=== PATIENT | female | born 1960 | race Caucasian/White ===

== ENCOUNTER → 2020-08-18 | Outpatient (CLI) | payer OTHER ==
[~2020-08-18] MED LIST: ALLERCLEAR10 MG PO; BUPR100; CEPH500 PO; CODACE30 PO; ESOM20; HYDACE5 PO; IBU800 M1 PO; LEVSOD125 PO; MELO7.5 PO; METPHE20CR; NEFA100; Norco 5-325 Ta1 EACH PO; OMEPRAZOLE MAGN20 MG PO; PENVK500 PO; Prilosec20 MG PO; RANI150; SYNTHROID112 MCG PO; TRAM50 PO
[2020-08-19 12:11] LABS: HPV 16 Negative (Negative); HPV 18 Negative (Negative); HPV OTHER HR TYPES Negative (Negative)
== END | disposition home or self-care (01) ==
LOC: LAB SHORT 16:15 → LAB 16:15
PROVIDERS: Nurse Practitioner Family
DX: Z01.419 Encounter for gynecological examination (general) (routine) without abnormal findings (principal)
CPT/HCPCS: 87624; G0123

== ENCOUNTER 2020-12-04 20:00 | Emergency (ER) | payer OTHER ==
[~2020-12-04] VITALS: Ht 180.3 cm; Wt 122.5 kg
[2020-12-04] MEDS ORDERED: PREGABALIN50 MG PO (20:10)
== END 2020-12-04 21:28 | disposition home or self-care (01) ==
LOC: ER 20:00
DX: M79.671 Pain in right foot (principal); E03.9 Hypothyroidism, unspecified; G62.9 Polyneuropathy, unspecified; Z87.891 Personal history of nicotine dependence
CPT/HCPCS: 73630; 99283-25

== ENCOUNTER → 2021-12-05 | Outpatient (CLI) | payer OTHER ==
[~2021-12-05] MED LIST changes: +PREGABALIN50 MG PO
[2021-12-05 13:18] LABS: BASOPHILS ABSOLUTE AUTO 0.07 K/mm3 (0.00-0.23); BASOPHILS PERCENT AUTO 1 % (0-2); EOSINOPHILS ABSOLUTE AUTO 0.26 K/mm3 (0.00-0.68); EOSINOPHILS PERCENT AUTO 3 % (0-6); Hematocrit 44.6 % (33.0-51.0); Hemoglobin 15.3 g/dL (11.5-16.0); IMMATURE GRAN ABSOLUTE AUTO 0.04 K/mm3 (0.00-0.10); IMMATURE GRAN PERCENT AUTO 0 % (0-1); LYMPHOCYTES ABSOLUTE AUTO 2.31 K/mm3 (0.84-5.20); LYMPHOCYTES PERCENT AUTO 24 % (21-46); MONOCYTES ABSOLUTE AUTO 0.78 K/mm3 (0.16-1.47); MONOCYTES PERCENT AUTO 8 % (4-13); Mean Corpuscular HGB 30.7 pg (26.0-34.0); Mean Corpuscular HGB Conc 34.3 g/dL (31.5-36.5); Mean Corpuscular Volume 90 fL (80-100); Mean Platelet Volume 9.7 fL (9.1-12.4); NEUTROPHILS ABSOLUTE AUTO 6.14 K/mm3 (1.96-9.15); NEUTROPHILS PERCENT AUTO 64 % (41-73); Platelet Count 281 K/mm3 (150-400); RDW Coefficient Variation 13.2 % (11.7-14.2); RDW Standard Deviation 42.7 fL (35.1-46.3); Red Blood Cell Count 4.98 M/mm3 (3.80-5.20)
[2021-12-05 13:33] LABS: Albumin, Blood 3.6 g/dL (3.4-5.0); Albumin/Globulin Ratio 0.9 (0.8-1.8); Bilirubin, Total 0.6 mg/dL (0.1-1.0); Bun/Creatinine Ratio 16.9 (12.0-20.0); Calcium, Blood 8.5 mg/dL (8.5-10.1); Creatinine, Blood 0.77 mg/dL (0.40-1.00); Free Thyroxine 1.32 ng/dL (0.70-1.60); Globulin, Blood 3.8 g/dL (2.2-4.0); Potassium, Blood 4.2 mmol/L (3.5-5.5); Thyroid Stimulating Hormone 3.52 uIU/mL (0.360-4.800); Total Protein, Blood 7.4 g/dL (6.4-8.2)
== END | disposition home or self-care (01) ==
LOC: LAB 13:10 → LAB SHORT 13:10
PROVIDERS: General Practice
DX: R07.9 Chest pain, unspecified (principal); R53.81 Other malaise
CPT/HCPCS: 80053; 82550; 84439; 84443; 84484; 85025

== ENCOUNTER 2022-04-04 09:29 | Day surgery (SDC) | payer OTHER ==
[~2022-04-04] VITALS: Ht 180.3 cm; Wt 127.1 kg
[~2022-04-04 09:29] MED LIST changes: +ACET500 PO; +FAMO20 PO; +OMEP20ER PO; -OMEPRAZOLE MAGN20 MG PO
--- NOTE | 2022-04-04 10:19 | NUR ---
Ambulatory in Day Surgery. History, Chart, Medications and Allergies reviewed before start of procedure. Lungs clear T/O to Auscultation. Patient confirms NPO status and agrees with scheduled surgery. Pre-Op teaching done. Pt verbalizes understanding. Patient States Post-Procedure ride home has been arranged.
--- NOTE | 2022-04-04 10:49 | NUR ---
04/04/22 1049 Roberto Carlos Alfaro HISTORY, CHART, MEDICATIONS AND ALLERGIES REVIEWED BEFORE START OF PROCEDURE. PATIENT CONFIRMS NPO STATUS AND AGREES WITH SCHEDULED PROCEDURE. 3-LEAD EKG REVIEWED WITH PHYSICIAN PRIOR TO START OF PROCEDURE. MONITOR INTACT WITH CONTINUOUS PULSE OXIMETRY,CAPNOGRAPHY, 3-LEAD EKG, INTERMITTENT BP. SUPPLEMENTAL O2 TO BE TITRATED THROUGHOUT PROCEDURE TO MAINTAIN O2 SATURATION ABOVE 90%. PATIENT DETERMINED TO BE ASA APPROPRIATE FOR PROPOFOL SEDATION PRIOR TO START OF PROCEDURE BY DR. VARGAS
--- NOTE | 2022-04-04 11:10 | NUR ---
DISCHARGE SUMMARY PT A&OX4, VSS/RA, SUSU PO, AMB IND, IV DC'D, EAGER FOR DC. DC INS PROVIDED. PT REP UNDERSTANDING THOSE INSTRUCTIONS. LEFT VIA WC WITH DC VOL TO GO HOME WITH ALL PERSONAL POSSESSIONS WITH DEALER ANALYST BURAK.
== END 2022-04-04 22:44 | disposition home or self-care (01) ==
LOC: ORSCMMR 09:29 → ORD 10:15 → ORSCMMR 22:44
PROVIDERS: Internal Medicine Gastroenterology
PROC: 0DBP8ZX Excision of Rectum, Via Natural or Artificial Opening Endoscopic, Diagnostic (ICD-10-PCS; principal; 2022-04-04 10:15)
PROC: 0DB48ZX Excision of Esophagogastric Junction, Via Natural or Artificial Opening Endoscopic, Diagnostic (ICD-10-PCS; 2022-04-04 10:15)
DX: K21.9 Gastro-esophageal reflux disease without esophagitis (principal); Z12.11 Encounter for screening for malignant neoplasm of colon; Z86.010 Personal history of colon polyps; K62.1 Rectal polyp; E03.9 Hypothyroidism, unspecified; E66.01 Morbid (severe) obesity due to excess calories; Z68.39 Body mass index [BMI] 39.0-39.9, adult; F17.210 Nicotine dependence, cigarettes, uncomplicated; Z79.899 Other long term (current) drug therapy
CPT/HCPCS: 82947; 88305; A9270; J2704; J7120

== ENCOUNTER → 2022-06-22 | Outpatient (CLI) | payer OTHER ==
[2022-06-22 16:10] LABS: BASOPHILS ABSOLUTE AUTO 0.07 K/mm3 (0.00-0.23); BASOPHILS PERCENT AUTO 1 % (0-2); EOSINOPHILS ABSOLUTE AUTO 0.12 K/mm3 (0.00-0.68); EOSINOPHILS PERCENT AUTO 1 % (0-6); Hematocrit 45.2 % (33.0-51.0); Hemoglobin 15.6 g/dL (11.5-16.0); IMMATURE GRAN ABSOLUTE AUTO 0.05 K/mm3 (0.00-0.10); IMMATURE GRAN PERCENT AUTO 1 % (0-1); LYMPHOCYTES ABSOLUTE AUTO 1.81 K/mm3 (0.84-5.20); LYMPHOCYTES PERCENT AUTO 16 % (21-46); MONOCYTES ABSOLUTE AUTO 1.13 K/mm3 (0.16-1.47); MONOCYTES PERCENT AUTO 10 % (4-13); Mean Corpuscular HGB 30.8 pg (26.0-34.0); Mean Corpuscular HGB Conc 34.5 g/dL (31.5-36.5); Mean Corpuscular Volume 89 fL (80-100); Mean Platelet Volume 10.3 fL (9.1-12.4); NEUTROPHILS ABSOLUTE AUTO 7.93 K/mm3 (1.96-9.15); NEUTROPHILS PERCENT AUTO 71 % (41-73); Platelet Count 286 K/mm3 (150-400); RDW Standard Deviation 42.3 fL (35.1-46.3); Red Blood Cell Count 5.06 M/mm3 (3.80-5.20); White Blood Cell Count 11.11 K/mm3 (4.00-11.30)
[2022-06-22 16:24] LABS: Albumin, Blood 3.9 g/dL (3.4-5.0); Albumin/Globulin Ratio 1.1 (0.8-1.8); Bilirubin, Total 0.7 mg/dL (0.1-1.0); Bun/Creatinine Ratio 14.6 (12.0-20.0); Calcium, Blood 9.2 mg/dL (8.5-10.1); Creatinine, Blood 0.89 mg/dL (0.40-1.00); Globulin, Blood 3.7 g/dL (2.2-4.0); Potassium, Blood 4.3 mmol/L (3.5-5.5); Total Protein, Blood 7.6 g/dL (6.4-8.2)
== END | disposition home or self-care (01) ==
LOC: LAB 16:06 → LAB SHORT 16:06
PROVIDERS: Physician Assistant
DX: R07.9 Chest pain, unspecified (principal)
CPT/HCPCS: 80053; 84484; 85025

== ENCOUNTER → 2022-07-04 | Outpatient (CLI) | payer OTHER | END | disposition home or self-care (01) | LOC: LAB SHORT 13:29 → LAB 13:29 | DX: Z51.81 Encounter for therapeutic drug level monitoring (principal); Z79.899 Other long term (current) drug therapy | CPT/HCPCS: 82306 ==

== ENCOUNTER → 2022-09-28 | Outpatient (CLI) | payer OTHER | END | disposition home or self-care (01) | LOC: PLD 08:07 → LAB SHORT 08:07 → LAB 08:07 | DX: L60.2 Onychogryphosis (principal); B35.1 Tinea unguium | CPT/HCPCS: 88304; 88312 ==

== ENCOUNTER 2022-11-22 06:18 | Day surgery (SDC) | payer OTHER ==
[~2022-11-22] VITALS: Ht 180.3 cm; Wt 117.4 kg
--- NOTE | 2022-11-22 06:45 | NUR ---
11/22/22 0645 Tamy Cotto TETRACAINE TO LEFT EYE 0640 PLEDGET TO LEFT EYE 0644 BY [facility].IBETH
[2022-11-22 08:40] VITALS: BP 160/90
== END 2022-11-22 08:43 | disposition home or self-care (01) ==
LOC: ORSCSDS 06:18
PROVIDERS: Student in an Organized Health Care Education/Training Program
PROC: 08RK3JZ Replacement of Left Lens with Synthetic Substitute, Percutaneous Approach (ICD-10-PCS; principal; 2022-11-22 08:00)
DX: E13.36 Other specified diabetes mellitus with diabetic cataract (principal); I10 Essential (primary) hypertension; G47.33 Obstructive sleep apnea (adult) (pediatric); E07.9 Disorder of thyroid, unspecified; E66.9 Obesity, unspecified; Z68.36 Body mass index [BMI] 36.0-36.9, adult; Z79.899 Other long term (current) drug therapy; F17.200 Nicotine dependence, unspecified, uncomplicated
CPT/HCPCS: 82947; J2001; J2250; J2704; J7040; V2632

== ENCOUNTER → 2023-08-16 | Outpatient (CLI) | payer OTHER | END | disposition home or self-care (01) | LOC: LAB 16:57 → LAB SHORT 16:57 | DX: M79.674 Pain in right toe(s) (principal) | CPT/HCPCS: 84550 ==

== ENCOUNTER → 2023-08-22 | Outpatient (CLI) | payer OTHER ==
[2023-08-22 19:50] LABS: BASOPHILS ABSOLUTE AUTO 0.02 K/mm3 (0.00-0.23); BASOPHILS PERCENT AUTO 0 % (0-2); EOSINOPHILS PERCENT AUTO 0 % (0-6); Hematocrit 43.2 % (33.0-51.0); Hemoglobin 14.7 g/dL (11.5-16.0); IMMATURE GRAN ABSOLUTE AUTO 0.11 K/mm3 (0.00-0.10); IMMATURE GRAN PERCENT AUTO 1 % (0-1); LYMPHOCYTES ABSOLUTE AUTO 1.04 K/mm3 (0.84-5.20); LYMPHOCYTES PERCENT AUTO 9 % (21-46); MONOCYTES ABSOLUTE AUTO 0.77 K/mm3 (0.16-1.47); MONOCYTES PERCENT AUTO 7 % (4-13); Mean Corpuscular Volume 91 fL (80-100); Mean Platelet Volume 10.8 fL (9.1-12.4); NEUTROPHILS ABSOLUTE AUTO 9.26 K/mm3 (1.96-9.15); NEUTROPHILS PERCENT AUTO 83 % (41-73); Platelet Count 291 K/mm3 (150-400); RDW Coefficient Variation 13.2 % (11.7-14.2); RDW Standard Deviation 43.9 fL (35.1-46.3); Red Blood Cell Count 4.74 M/mm3 (3.80-5.20)
[2023-08-22 19:59] LABS: Albumin, Blood 3.9 g/dL (3.4-5.0); Albumin/Globulin Ratio 0.9 (0.8-1.8); Bilirubin, Total 0.6 mg/dL (0.1-1.0); Bun/Creatinine Ratio 20.4 (12.0-20.0); Calcium, Blood 8.9 mg/dL (8.5-10.1); Creatinine, Blood 0.93 mg/dL (0.40-1.00); Globulin, Blood 4.3 g/dL (2.2-4.0); Potassium, Blood 4.1 mmol/L (3.5-5.5); Thyroid Stimulating Hormone 0.566 uIU/mL (0.360-4.800); Total Protein, Blood 8.2 g/dL (6.4-8.2)
== END | disposition home or self-care (01) ==
LOC: LAB 19:05 → LAB SHORT 19:05
PROVIDERS: Student in an Organized Health Care Education/Training Program
DX: E03.9 Hypothyroidism, unspecified (principal); E66.01 Morbid (severe) obesity due to excess calories; E11.9 Type 2 diabetes mellitus without complications
CPT/HCPCS: 80053; 84443; 85025

== ENCOUNTER → 2023-11-13 | Outpatient (CLI) | payer OTHER | LOC: LAB SHORT 07:42 → LAB 07:42 | DX: I78.1 Nevus, non-neoplastic (principal); L30.9 Dermatitis, unspecified; L03.031 Cellulitis of right toe | CPT/HCPCS: 88305; 88312 ==

== ENCOUNTER 2024-02-27 08:08 | Day surgery (SDC) | payer OTHER ==
[~2024-02-27] VITALS: Ht 180.3 cm; Wt 122.6 kg
[2024-02-27] VITALS (14 sets, daily range): BP systolic 104–169; BP diastolic 65–110
[~2024-02-27 08:08] MED LIST changes: +ALBU3IS INH; +Acetaminophen 500 MG Tab PO SCH; +CeFAZolin Sodium 3,000 MG in NS 100 ML IV SCH; +Chantix1 MG PO; +Chlorhexidine Mouth Care 15 ML UDC MT SCH; +IBUP200 PO; +JARDIANCE25 MG PO; +LEVSOD112 PO; +LOSA50 PO; +Lactated Ringer's 1,000 ML IV SCH; +NIFE90ER PO; +OxyCODONE HCL 10 MG TABCR PO SCH; +Ropivacaine 0.5% HCl/Pf 123.125 MG,EPINEPHrine HCL 0.25 MG,Ketorolac Tromethamine 15 MG... INFIL SCH; -SYNTHROID112 MCG PO; +Tranexamic Acid 1,000 MG in NS 100 ML IV SCH; +VARENICLINE TART1 MG PO; +Voltaren100 GM TOP
[2024-02-27] MEDS ORDERED: CeFAZolin Sodium 3,000 MG VIAL ONE (08:15)
[2024-02-27] MEDS ORDERED: Midazolam HCl 1MG / ML 2ML Vial ONE (08:54)
[2024-02-27] MEDS ORDERED: FentaNYL Citrate 50 MCG/ML 2 ML Injection ONE (08:54)
[2024-02-27] MEDS ORDERED: propofoL 60 ML IV ONE (08:54)
--- NOTE | 2024-02-27 08:56 | NUR ---
History, Chart, Medications and Allergies reviewed before start of procedure. Pre-Op teaching done. Pt verbalizes understanding. Patient confirms NPO status and agrees with scheduled surgery. PT BELONGINGS BAG PLACED UNDER GURNEY.
[2024-02-27] MEDS ORDERED: Promethazine HCl 25 MG Tab PO PRN (09:50)
[2024-02-27] MEDS ORDERED: Albuterol 2.5 MG/3 ML VIAL INH PRN (09:50)
[2024-02-27] MEDS ORDERED: OxyCODONE HCL 5 MG TAB PO PRN ×2 (09:55)
[2024-02-27] MEDS ORDERED: Bisacodyl 10 MG Supp PR PRN (10:10)
[2024-02-27] MEDS ORDERED: ePHEDrine Sulfate 50 MG/ML 1ML Injection ONE (10:12)
[2024-02-27] MEDS ORDERED: Magnesium Hydroxide Conc 10 ML UDC PO PRN (10:15)
[2024-02-27] MEDS ORDERED: HYDROmorphone HCl/Pf 1MG SYR IV PRN (10:15)
[2024-02-27] MEDS ORDERED: FLU VACC TS2024-25(6MOS UP)/PF 45 MCG/0.5 ML SYRINGE IM SCH (10:15)
[2024-02-27] MEDS ORDERED: Lactated Ringer's 1,000 ML IV SCH (10:15)
[2024-02-27] MEDS ORDERED: DiphenhydrAMINE HCL 25 MG Cap PO PRN (10:15)
[2024-02-27] MEDS ORDERED: Metoclopramide HCl 5MG / ML 2ML Vial IV PRN (10:20)
--- NOTE | 2024-02-27 10:40 | NUR ---
02/27/24 1040 Jing,Brittany SPINAL BLOCK COMPLETED BY DR. LAWS UPON ENTRY TO OR.
[2024-02-27] MEDS ORDERED: Ondansetron HCl 2 MG / ML 2ML Vial IV PRN (10:55)
[2024-02-27] MEDS ORDERED: propofoL 20 ML IV ONE (11:23)
[2024-02-27] MEDS ORDERED: Insulin Regular 100 UNIT/ML 10ML Vial SC SCH (11:30)
[2024-02-27] MEDS ORDERED: Ketorolac Tromethamine 15mg Vial IV SCH (12:00)
--- NOTE | 2024-02-27 14:00 | NUR ---
POST OP/ARRIVAL NOTE PT TO ROOM 212 FROM PACU. PT IS ALERT AND RESPONSIVE. VSS. PT DENIES PAIN AT THIS TIME, SENSATION TO L2, PT CAN WIGGLE TOES. DRESSING TO L KNEE C/D/I, CAP REFILL 2 SECS IN L TOES, POLAR PACK, HUONG HOSE, PAS IN PLACE. PT TOLERATING SOME SNACKS AND PO FLUIDS UPON ARRIVAL, SALINE LOCKED SHORTLY AFTER. PT EDUCATED REGARDING CALL LIGHT USE AND ASSISTANCE REQUIRED W/ AMBULATION, CALL LIGHT IN REACH.
[2024-02-27] MEDS ORDERED: Acetaminophen 500 MG Tab PO SCH (16:00)
[2024-02-27] MEDS ORDERED: ASPI81CH PO (17:17)
[2024-02-27] MEDS ORDERED: CeFAZolin Sodium 3,000 MG in NS 100 ML IV SCH (18:00)
--- NOTE | 2024-02-27 18:20 | NUR ---
DISCHARGE NOTE PT IS ALERT, RESPONSIVE, AMBULATING 1 ASST W/ FWW AND GB TO BATHROOM. PT IS VOIDING, TOLERATING REG DIET, DRINKING FLUIDS. PAIN IS CONTROLLED W/ SCHEDULED AND PRN PAIN MEDS. PT HAS PRESCRIPTIONS FILLED AT HOME. PT HAS WALKER TO USE AT HOME. DRESSINGS SENT W/ PT. DISCHARGE INSTRUCTIONS REVIEWED AND COPY SENT HOME W/ PT. CAP REFILL IN L TOES 2 SECS, DRESSING TO L KNEE C/D/I, PT REPORTS FULL SENSATION TO L FOOT BUT IS REPORT SOME NUMBNESS TO L CALF. DR. FIGUEROA NOTIFIED, HE STATES HE IS NOT CONCERNED NUMBNESS IS MOST LIKELY FROM LOCAL INJECTED IN OR. PT IS HTN AT BASELINE, VSS. PT IS UNNCOOPERATIVE AT TIMES AND ASKS FOR STAFF TO HURRY UP OR SHE WILL "JUST FUCKING LEAVE ON HER OWN". PAIN MEDS GIVEN BEFORE DISCHARGE. PT DC'D VIA WC TO PRIVATE RIDE HOME IN STABLE CONDITION W/ BELONGINGS.
[2024-02-27] MEDS ORDERED: Docusate Sodium 100 MG Cap PO SCH (21:00)
[2024-02-28] MEDS ORDERED: Levothyroxine Sodium 0.125 MG Tab PO SCH (06:00)
[2024-02-28] MEDS ORDERED: Omeprazole 20 MG CapCR PO SCH (06:00)
[2024-02-28] MEDS ORDERED: Losartan Potassium 50 MG Tab PO SCH (09:00)
[2024-02-28] MEDS ORDERED: Empagliflozin 25 MG TAB PO SCH (09:00)
[2024-02-28] MEDS ORDERED: Aspirin 81 MG Chew PO SCH (09:00)
[2024-02-28] MEDS ORDERED: Varenicline Tartrate 1 MG Tablet PO SCH (09:00)
== END 2024-02-27 18:17 | disposition home or self-care (01) ==
LOC: ORSCMMR 08:08 → ORD 09:15 → SURS 13:03 → ORSCMMR 18:17
PROVIDERS: Orthopaedic Surgery
PROC: 0SRD0JA Replacement of Left Knee Joint with Synthetic Substitute, Uncemented, Open Approach (ICD-10-PCS; principal; 2024-02-27 09:15)
DX: M17.12 Unilateral primary osteoarthritis, left knee (principal); I10 Essential (primary) hypertension; G47.33 Obstructive sleep apnea (adult) (pediatric); J45.909 Unspecified asthma, uncomplicated; F17.210 Nicotine dependence, cigarettes, uncomplicated; K21.9 Gastro-esophageal reflux disease without esophagitis; E11.9 Type 2 diabetes mellitus without complications; E03.9 Hypothyroidism, unspecified; E66.9 Obesity, unspecified; Z68.37 Body mass index [BMI] 37.0-37.9, adult; Z79.899 Other long term (current) drug therapy
CPT/HCPCS: 73560-LT; 82947; 97110; 97116; 97162; 97530; A9270; C1713; C1776; J0171; J0735; J1885; J2250; J2704; J2795; J3010; J7120

== ENCOUNTER 2024-03-01 07:33 | Observation (INO) | payer OTHER ==
[2024-03-01] VITALS (15 sets, daily range): BP systolic 94–164; BP diastolic 77–119
[~2024-03-01] VITALS: Ht 180.3 cm; Wt 117.5 kg
[~2024-03-01 07:33] MED LIST changes: +ASPI81CH PO; -Acetaminophen 500 MG Tab PO SCH; -CeFAZolin Sodium 3,000 MG in NS 100 ML IV SCH; -Chlorhexidine Mouth Care 15 ML UDC MT SCH; -Lactated Ringer's 1,000 ML IV SCH; -OxyCODONE HCL 10 MG TABCR PO SCH; -Ropivacaine 0.5% HCl/Pf 123.125 MG,EPINEPHrine HCL 0.25 MG,Ketorolac Tromethamine 15 MG... INFIL SCH; -Tranexamic Acid 1,000 MG in NS 100 ML IV SCH
[2024-03-01] MEDS ORDERED: Morphine Sulfate 4 MG/1 ML Injection IV ONE (07:45)
[2024-03-01] MEDS ORDERED: Ondansetron HCl 2 MG / ML 2ML Vial ONE (07:57)
[2024-03-01] MEDS ORDERED: NS 1,000 ML IV ONE ×3 (08:03→08:13)
[2024-03-01] MEDS ORDERED: Heparin Sodium 1000 Units/ML 10ML MDV ONE ×3 (08:03→08:13)
[2024-03-01] MEDS ORDERED: Nitroglycerin 2 MG/20 ML BTL ONE (08:06)
[2024-03-01] MEDS ORDERED: Verapamil HCL 2.5 MG/ML 2ML Injection ONE (08:06)
[2024-03-01] MEDS ORDERED: NS 250 ML IV ONE (08:06)
[2024-03-01 08:07] LABS: BASOPHILS ABSOLUTE AUTO 0.06 K/mm3 (0.00-0.23); BASOPHILS PERCENT AUTO 0 % (0-2); EOSINOPHILS ABSOLUTE AUTO 0.03 K/mm3 (0.00-0.68); EOSINOPHILS PERCENT AUTO 0 % (0-6); Hemoglobin 13.4 g/dL (11.5-16.0); IMMATURE GRAN ABSOLUTE AUTO 0.14 K/mm3 (0.00-0.10); IMMATURE GRAN PERCENT AUTO 1 % (0-1); LYMPHOCYTES ABSOLUTE AUTO 1.57 K/mm3 (0.84-5.20); LYMPHOCYTES PERCENT AUTO 10 % (21-46); MONOCYTES ABSOLUTE AUTO 1.84 K/mm3 (0.16-1.47); MONOCYTES PERCENT AUTO 12 % (4-13); Mean Corpuscular HGB 30.5 pg (26.0-34.0); Mean Corpuscular HGB Conc 34.4 g/dL (31.5-36.5); Mean Corpuscular Volume 89 fL (80-100); NEUTROPHILS ABSOLUTE AUTO 11.67 K/mm3 (1.96-9.15); NEUTROPHILS PERCENT AUTO 76 % (41-73); Platelet Count 274 K/mm3 (150-400); RDW Coefficient Variation 12.4 % (11.7-14.2); RDW Standard Deviation 40.7 fL (35.1-46.3); Red Blood Cell Count 4.39 M/mm3 (3.80-5.20); White Blood Cell Count 15.31 K/mm3 (4.00-11.30)
[2024-03-01] MEDS ORDERED: Midazolam HCl 1MG / ML 2ML Vial ONE (08:08)
[2024-03-01] MEDS ORDERED: FentaNYL Citrate 50 MCG/ML 2 ML Injection ONE (08:08)
[2024-03-01] MEDS ORDERED: Ondansetron HCl 2 MG / ML 2ML Vial IV ONE (08:10)
[2024-03-01 08:28] LABS: Albumin, Blood 3.1 g/dL (3.4-5.0); Albumin/Globulin Ratio 0.7 (0.8-1.8); Bilirubin, Total 1.1 mg/dL (0.1-1.0); Bun/Creatinine Ratio 18.4 (12.0-20.0); Calcium, Blood 9.1 mg/dL (8.5-10.1); Creatinine, Blood 0.76 mg/dL (0.40-1.00); Globulin, Blood 4.5 g/dL (2.2-4.0); Potassium, Blood 3.8 mmol/L (3.5-5.5); Total Protein, Blood 7.6 g/dL (6.4-8.2)
[2024-03-01] MEDS ORDERED: Tirofiban HCL Monohydrate 3.75 MG/15 ML Vial ONE (08:33)
[2024-03-01] MEDS ORDERED: Clopidogrel Bisulfate 300 MG Cap ONE (08:59)
[2024-03-01 09:08] LABS: Anti-Xa UFH, PHA Monitoring <0.10 IU/mL; International Normalized Ratio 0.97; Prothrombin Time Results 10.4 Sec (9.7-11.5)
--- NOTE | 2024-03-01 09:30 | NUR ---
[place] of care: Patient comes from lab tech s/p 1 stent to mid LAD. No complaints of SOB or CP but does have sensation of acid reflux. Hypertensive which was discussed with Dr. Jean-Baptiste. Maalox ordered also. Stable heart rate in NSR in 80-90s, on room air with oxygen saturation of 98% & clear lung sounds. Voiding on bedpan. TR band in place with good SP02 pleth & perfusion to hand. Recent L TKA with dressing/kassie wrap in place. Pulses palpable bilat LE. Will continue to monitor.
[2024-03-01] MEDS ORDERED: Mag Hydrox/AL Hydrox/Simeth 30 ML UDC PO PRN (10:05)
[2024-03-01] MEDS ORDERED: AmLODIPine Besylate 5 MG Tab PO ONE (10:25)
[2024-03-01] MEDS ORDERED: Albuterol HFA200 ACT/6.7 GM INH INH PRN (10:45)
[2024-03-01] MEDS ORDERED: HYDROcodone 5-APAP 325 TAB PO PRN (10:45)
[2024-03-01] MEDS ORDERED: ALPRAZolam 0.5 MG Tab PO PRN (11:00)
[2024-03-01] MEDS ORDERED: Prochlorperazine Edisylate 10 mg Vial IV PRN (11:00)
[2024-03-01] MEDS ORDERED: FLU VACC TS2024-25(6MOS UP)/PF 45 MCG/0.5 ML SYRINGE IM SCH (11:00)
[2024-03-01] MEDS ORDERED: Insulin Human Lispro 100 Units/ML 3ML Syringe SC SCH (11:30)
[2024-03-01] MEDS ORDERED: Heparin Sodium,Porcine 5,000 UNIT/0.5 ML SDV SC ONE (13:19)
[2024-03-01] MEDS ORDERED: CloNIDine 0.1 MG Tab PO PRN (17:10)
--- NOTE | 2024-03-01 17:27 | NUR ---
Shift summary: All vital signs stable throughout the shift except for intermittently elevated blood pressures, orders for amlodipine x1 & prn clonidine to keep SBP below 160. On room air, voiding frequently. Good PO intake. PCI site clean/dry/intact with good perfusion to hand & fingers. Does complain of 2/[address] Perdomo was notified & is aware. PIV to left AC intact. Will continue to monitor.
--- NOTE | 2024-03-01 19:00 | NUR ---
Dr. Perdomo notified that patient is experiencing new onset chest pain, 7/10, sharp, beneath right breast. Patient states it could also be "trapped gas". EKG obtained & image sent to him. Awaiting call back.
--- NOTE | 2024-03-01 19:33 | NUR ---
ASSUMED CARE OF PT AT 1900. REPORT RECEIVED AT BEDSIDE. PT STATES SHE CONTINUES TO HAVE SOME CHEST DISCOMFORT THAT IS NOT LIKE WHAT SHE HAD PRIOR TO COMING TO HOSPITAL. EXPRESSES THAT SHE IS VERY "GASSY" AND DOES HAVE COPIOUS FLATUS WHILE REPORT WAS BEING DONE. PT STATES THAT HER CHEST DISCOMFORT WAS SOMEWHAT LESS AFTER PASSING FLATUS. DR PORTILLO COMES TO ROOM AND ASSESSES PT. ORDER RECEIVED FOR ECHO IN AM. LINDSEY REASSURES PT. RAIAL SITE ON RIGHT WITH ECCHYMOSIS. NO OOZING OR HEMATOMA NOTED. EKG HAS BEEN COMPLETED, AND DR PORTILLO HAS SEEN REPORT. WILL REVIEW CHART AND PLAN OF CARE FOR THIS PT.
[2024-03-01] MEDS ORDERED: Simethicone 80 MG Chew PO PRN (19:55)
[2024-03-01] MEDS ORDERED: Sennosides 8.6 MG Tab PO SCH (21:00)
[2024-03-01] MEDS ORDERED: Famotidine 20 MG Tab PO SCH (21:00)
[2024-03-01] MEDS ORDERED: Metoprolol Tartrate 50 MG Tab PO SCH (21:00)
[2024-03-01] MEDS ORDERED: Atorvastatin 40 MG Tab PO SCH (21:00)
[2024-03-02] VITALS (13 sets, daily range): BP systolic 103–145; BP diastolic 65–113
--- NOTE | 2024-03-02 01:05 | NUR ---
PT HAS BEEN ANXIOUS AND SOMEWHAT ANGRY ABOUT HAVING STEMI, AND HAVING TO BE IN THE HOSPITAL. PT IS EASILY IRRITATED BY MONITORING EQUIPMENT WELL HOSPITAL BED. PT HAS BEEN MEDICATED WITH NORCO FOR LEFT KNEE PAIN. AGAIN ONCE WITH MYLANTA FOR GI UPSET THAT SHE STATES IS AFFECTING HER BREATHING. THIS HAS BEEN AFFECTIVE IN RELIEVING DYSPNEA AND CHEST PAIN. PT CURRENTLY RESTING IN BED. NO COMPLAINTS OF DYSPEPSIA, CHEST PAIN/PRESSURE, OR DYSPNEA. WILL CONTINUE TO MONITOR.
[2024-03-02 05:46] LABS: BASOPHILS ABSOLUTE AUTO 0.05 K/mm3 (0.00-0.23); BASOPHILS PERCENT AUTO 0 % (0-2); EOSINOPHILS ABSOLUTE AUTO 0.04 K/mm3 (0.00-0.68); EOSINOPHILS PERCENT AUTO 0 % (0-6); Hematocrit 38.8 % (33.0-51.0); Hemoglobin 12.8 g/dL (11.5-16.0); IMMATURE GRAN ABSOLUTE AUTO 0.07 K/mm3 (0.00-0.10); IMMATURE GRAN PERCENT AUTO 1 % (0-1); LYMPHOCYTES ABSOLUTE AUTO 1.89 K/mm3 (0.84-5.20); LYMPHOCYTES PERCENT AUTO 16 % (21-46); MONOCYTES ABSOLUTE AUTO 1.29 K/mm3 (0.16-1.47); MONOCYTES PERCENT AUTO 11 % (4-13); Mean Corpuscular HGB 30.2 pg (26.0-34.0); Mean Corpuscular Volume 92 fL (80-100); Mean Platelet Volume 9.8 fL (9.1-12.4); NEUTROPHILS ABSOLUTE AUTO 8.22 K/mm3 (1.96-9.15); NEUTROPHILS PERCENT AUTO 71 % (41-73); Platelet Count 306 K/mm3 (150-400); RDW Coefficient Variation 12.6 % (11.7-14.2); RDW Standard Deviation 42.5 fL (35.1-46.3); Red Blood Cell Count 4.24 M/mm3 (3.80-5.20); White Blood Cell Count 11.56 K/mm3 (4.00-11.30)
[2024-03-02 06:10] LABS: Bun/Creatinine Ratio 18.7 (12.0-20.0); Calcium, Blood 8.8 mg/dL (8.5-10.1); Creatinine, Blood 0.69 mg/dL (0.40-1.00); Potassium, Blood 4.1 mmol/L (3.5-5.5)
--- NOTE | 2024-03-02 06:32 | NUR ---
PT VERBALIZES THAT SHE WANTS TO BE ABLE TO GO HOME THIS MORNING. HAS FRIEND THAT IS COMING IN AROUND 8 AM. DID DISCUSS WITH PT THAT DISCHARGES GENERALLY OCCUR AFTER 10 AM IN MORNING SECONDARY TO ORDERS, AND DISCHARGE PLANNING. PT VERBALIZES UNDERSTANDING. HAS BEEN MEDICATED WITH ONE NORCO 5/325MG SEVERAL THREE TIMES THIS SHIFT FOR COMPLAINT OF LEFT KNEE PAIN. PT RESPONDED WELL TO SIMETHICONE, AND TO MYLANTA WHEN SHE WAS HAVING "CHEST PAIN AND PRESSURE". CURRENTLY NOT HAVING ANY DISCOMFORT OTHER THAN THE LEFT KNEE WHICH IS RESPONDING TO NORCO. EKG DONE THIS MORNING. WILL CONTINUE TO MONITOR PT, AND WILL REPORT OFF TO ONCOMING RN.
[2024-03-02] MEDS ORDERED: Clopidogrel Bisulfate 75 MG Tab PO SCH (09:00)
[2024-03-02] MEDS ORDERED: Levothyroxine Sodium 0.125 MG Tab PO SCH (09:00)
[2024-03-02] MEDS ORDERED: Losartan Potassium 50 MG Tab PO SCH (09:00)
[2024-03-02] MEDS ORDERED: Lisinopril 5 MG Tab PO SCH (09:00)
[2024-03-02] MEDS ORDERED: Aspirin 81 MG Chew PO SCH (09:00)
[2024-03-02] MEDS ORDERED: Enoxaparin 40 MG/0.4 ML SYR SC SCH (09:00)
[2024-03-02] MEDS ORDERED: AmLODIPine Besylate 5 MG Tab PO SCH (09:00)
[2024-03-02] MEDS ORDERED: Empagliflozin 25 MG TAB PO SCH (09:00)
--- NOTE | 2024-03-02 09:00 | NUR ---
[place] of care: Resting in bed with no complaints of CP, SOB, or pain. Vital signs stable. Voiding on bedpan. Good PO intake. On room air. PIV x1 in place. Awaiting discharge orders. PCI site clean, dry, intact with no hematoma & good perfusion to hand/digits.
[2024-03-02] MEDS ORDERED: AMLO5 PO ×3 (11:42)
[2024-03-02] MEDS ORDERED: ATOR40TA PO ×2 (11:43)
[2024-03-02] MEDS ORDERED: CLOP75 PO ×3 (11:43)
[2024-03-02] MEDS ORDERED: Lopressor 50 mg50 MG PO ×3 (11:44)
--- NOTE | 2024-03-02 12:59 | NUR ---
Patient given discharge paper work & instructions. All questions answered. Wheeled to car via wheelchair.
== END 2024-03-02 12:30 | disposition home or self-care (01) ==
LOC: ER 07:33 → ICUE 07:34 → ER 07:53 → ICUE 07:53
PROVIDERS: Emergency Medicine; Internal Medicine; ADMIT Internal Medicine Interventional Cardiology
DX: I21.3 ST elevation (STEMI) myocardial infarction of unspecified site (principal); I10 Essential (primary) hypertension; E11.9 Type 2 diabetes mellitus without complications; E03.9 Hypothyroidism, unspecified; K21.9 Gastro-esophageal reflux disease without esophagitis; J44.9 Chronic obstructive pulmonary disease, unspecified; F17.200 Nicotine dependence, unspecified, uncomplicated; Z79.84 Long term (current) use of oral hypoglycemic drugs; Z79.899 Other long term (current) drug therapy
CPT/HCPCS: 71045; 76937; 80048; 80053; 82947; 84484; 85025; 85347; 85520; 85610; 92920; 93005; 93010; 93454; 94762; 96374; 96375; 99152; 99153; 99285-25; A9270; C1725; C1769; C1874; C1887; C1894; C8929; C9606; J1644; J1650; J2250; J2270; J2405; J3010; J3246; J7030; J7050; Q9957; Q9967

== ENCOUNTER 2024-03-05 10:20 | Inpatient (IN) | payer OTHER ==
[~2024-03-05] VITALS: Ht 180.3 cm; Wt 119.5 kg
[2024-03-05] VITALS (33 sets, daily range): BP systolic 92–164; BP diastolic 80–122
[~2024-03-05 10:20] MED LIST changes: +AMLO5 PO; +ATOR40TA PO; +CLOP75 PO; +Lopressor 50 mg50 MG PO
[2024-03-05] MEDS ORDERED: Aspirin 81 MG Chew PO ONE ×2 (10:30→15:38)
[2024-03-05] MEDS ORDERED: Nitroglycerin 1 INCH/GM PKT TOP ONE (10:30)
[2024-03-05 10:35] LABS: BASOPHILS ABSOLUTE AUTO 0.05 K/mm3 (0.00-0.23); BASOPHILS PERCENT AUTO 1 % (0-2); EOSINOPHILS ABSOLUTE AUTO 0.05 K/mm3 (0.00-0.68); EOSINOPHILS PERCENT AUTO 1 % (0-6); Hematocrit 39.9 % (33.0-51.0); Hemoglobin 13.5 g/dL (11.5-16.0); IMMATURE GRAN ABSOLUTE AUTO 0.08 K/mm3 (0.00-0.10); IMMATURE GRAN PERCENT AUTO 1 % (0-1); LYMPHOCYTES PERCENT AUTO 20 % (21-46); MONOCYTES ABSOLUTE AUTO 1.09 K/mm3 (0.16-1.47); MONOCYTES PERCENT AUTO 11 % (4-13); Mean Corpuscular HGB 30.1 pg (26.0-34.0); Mean Corpuscular HGB Conc 33.8 g/dL (31.5-36.5); Mean Corpuscular Volume 89 fL (80-100); Mean Platelet Volume 9.3 fL (9.1-12.4); NEUTROPHILS ABSOLUTE AUTO 6.89 K/mm3 (1.96-9.15); NEUTROPHILS PERCENT AUTO 68 % (41-73); Platelet Count 505 K/mm3 (150-400); RDW Coefficient Variation 12.3 % (11.7-14.2); RDW Standard Deviation 40.1 fL (35.1-46.3); Red Blood Cell Count 4.48 M/mm3 (3.80-5.20); White Blood Cell Count 10.16 K/mm3 (4.00-11.30)
[2024-03-05] MEDS ORDERED: Heparin Sodium 5000 Units/ML 1ML MDV IV ONE (10:35)
[2024-03-05] MEDS ORDERED: Heparin Sodium 1000 Units/ML 10ML MDV ONE ×4 (10:37→19:10)
[2024-03-05] MEDS ORDERED: Morphine Sulfate 4 MG/1 ML Injection ONE (10:37)
[2024-03-05] MEDS ORDERED: Morphine Sulfate 4 MG/1 ML Injection IV ONE (10:40)
[2024-03-05] MEDS ORDERED: NS 1,000 ML IV ONE ×4 (10:41→19:22)
[2024-03-05] MEDS ORDERED: Midazolam HCl 1MG / ML 2ML Vial ONE ×4 (10:41→19:22)
[2024-03-05] MEDS ORDERED: FentaNYL Citrate 50 MCG/ML 2 ML Injection ONE ×3 (10:41→19:22)
[2024-03-05 10:50] LABS: International Normalized Ratio 1.02; Prothrombin Time Results 10.9 Sec (9.7-11.5)
[2024-03-05] MEDS ORDERED: Atropine Sulfate 0.1 MG/ML 10ML SYR ONE (10:56)
[2024-03-05] MEDS ORDERED: Tirofiban HCL Monohydrate 3.75 MG/15 ML Vial ONE (11:05)
[2024-03-05] MEDS ORDERED: FLU VACC TS2024-25(6MOS UP)/PF 45 MCG/0.5 ML SYRINGE IM PRN (11:40)
[2024-03-05] MEDS ORDERED: NS 250 ML IV ONE ×2 (12:57→19:10)
[2024-03-05] MEDS ORDERED: Verapamil HCL 2.5 MG/ML 2ML Injection ONE ×2 (12:57→19:09)
[2024-03-05] MEDS ORDERED: Nitroglycerin 2 MG/20 ML BTL ONE ×2 (12:57→19:10)
[2024-03-05] MEDS ORDERED: Albuterol 2.5 MG/3 ML VIAL INH PRN (15:30)
[2024-03-05] MEDS ORDERED: Ticagrelor 90 MG TABLET PO ONE (15:38)
[2024-03-05] MEDS ORDERED: Nitroglycerin 0.4 MG SUBL SL ONE (15:38)
[2024-03-05] MEDS ORDERED: Heparin Sodium,Porcine 5,000 UNIT/0.5 ML SDV SC ONE (15:38)
[2024-03-05] MEDS ORDERED: OxyCODONE 5 mg/Acetamin 325 mg TABLET PO PRN (17:00)
--- NOTE | 2024-03-05 18:37 | NUR ---
SHIFT SUMMARY ASSUME CARE OF PATIENT S/P PCI. R RADIAL TR BAND PRESENT. PATIENT TOLERATED DEFLATION OF TR BAND WELL. VISIBLE ECCYMOSIS AT THE SITE. PATIENT STATES THAT ECCYMOSIS PRESENT PRIOR TO ADMISSION THIS WAS HER SITE FOR PRIOR PCI. SITE C/D/I, NO HEMATOMA PRESENT, AREA IS SOFT AND TENDER. CIRCULATION AND SENSATION INTACT. ALERT AND ORIENTED X4. ABLE TO MAKE HER NEEDS KNOWN. HTN POST PCI, EKG COMPLETED WITH ADMISSION. LUNGS ARE CLEAR TO AUSCULATION HR 50-60S INTITALLY AND THEN INCREASED TO 60-70S. SINUS RHYTHM ABDOMEN IS SOFT/NON TENDER WITH ACTIVE BOWEL TONES. DRESSING TO L KNEE - RECENT TKA. DRESSING IS CLEAN, DRY AND INTACT FRIENDS INTO VISIT MOST OF THE AFTERNOON. PATIENT USING A FWW AT HOME CURRENTLY PATIENT STATES WBAT ON LLE. REPEAT EKG COMPLETED AT 1820 PATIENT REPORTED CHEST PAIN, FLUSHING AND DIAPHORESIS. DR DUMONT NOTIFIED AND CAME TO FLOOR TO DISCUSS AND IS PRESENT NOW.
[2024-03-05] MEDS ORDERED: HYDROcodone 5-APAP 325 TAB PO PRN (19:00)
[2024-03-05] MEDS ORDERED: NS 360 ML IV SCH (19:00)
[2024-03-05] MEDS ORDERED: HYDROcodone 5-APAP 325 TAB PO ONE (19:00)
[2024-03-05] MEDS ORDERED: Nitroglycerin/D5W 250 ML IV SCH (19:00)
--- NOTE | 2024-03-05 19:26 | NUR ---
ASSUMED CARE AT 1900 PATIENT IS ALERT AND ORIENTED X4. FAMILY AT BEDSIDE. PATIENT REPOSRTS 3/10 CHEST PAIN. HR SR 80, BP STABLE. SP02 98% ON RA. DENIES SOB. RIGHT RADIAL SITE WITH SOME BRUISING, DRESSING AND ARM BOARD IN PLACE. RIGHT KNEE WITH SURGICAL DRESSING IN PLACE. CERTIFIED INDUSTRIAL HYGIENIST TO ROOM, PATIENT TO CERTIFIED INDUSTRIAL HYGIENIST AT 1925. NITRO DRIP NOT STARTED BUT SINCE WITH RN. FAMILY TO WAITING ROOM
[2024-03-05 19:27] LABS: BASOPHILS ABSOLUTE AUTO 0.07 K/mm3 (0.00-0.23); BASOPHILS PERCENT AUTO 1 % (0-2); EOSINOPHILS ABSOLUTE AUTO 0.05 K/mm3 (0.00-0.68); EOSINOPHILS PERCENT AUTO 0 % (0-6); Hematocrit 39.5 % (33.0-51.0); Hemoglobin 13.5 g/dL (11.5-16.0); IMMATURE GRAN ABSOLUTE AUTO 0.09 K/mm3 (0.00-0.10); IMMATURE GRAN PERCENT AUTO 1 % (0-1); LYMPHOCYTES ABSOLUTE AUTO 1.52 K/mm3 (0.84-5.20); LYMPHOCYTES PERCENT AUTO 13 % (21-46); MONOCYTES ABSOLUTE AUTO 1.38 K/mm3 (0.16-1.47); MONOCYTES PERCENT AUTO 12 % (4-13); Mean Corpuscular HGB 30.2 pg (26.0-34.0); Mean Corpuscular HGB Conc 34.2 g/dL (31.5-36.5); Mean Corpuscular Volume 88 fL (80-100); Mean Platelet Volume 9.2 fL (9.1-12.4); NEUTROPHILS ABSOLUTE AUTO 8.83 K/mm3 (1.96-9.15); NEUTROPHILS PERCENT AUTO 74 % (41-73); Platelet Count 465 K/mm3 (150-400); RDW Coefficient Variation 12.2 % (11.7-14.2); RDW Standard Deviation 39.8 fL (35.1-46.3); Red Blood Cell Count 4.47 M/mm3 (3.80-5.20); White Blood Cell Count 11.94 K/mm3 (4.00-11.30)
[2024-03-05 20:03] LABS: Bun/Creatinine Ratio 20.8 (12.0-20.0); Calcium, Blood 9.1 mg/dL (8.5-10.1); Creatinine, Blood 0.67 mg/dL (0.40-1.00); Potassium, Blood 3.9 mmol/L (3.5-5.5)
--- NOTE | 2024-03-05 20:36 | NUR ---
PT TX BACK TO ICU 2 WITH 13 CC IN TR BAND TO R WRIST. PT ALERT AND ORIENTED. REPORTS 02/22 CP. REPORT TO SORIN OCHOA TO ASSUME CARE. SITE REVIEWED AT BEDSIDE. NO HEMATOMA OR BLEEDING.
[2024-03-05] MEDS ORDERED: NS 1,500 ML IV SCH (21:00)
[2024-03-05] MEDS ORDERED: Ticagrelor 90 MG TABLET PO SCH (21:00)
[2024-03-06] VITALS (34 sets, daily range): BP systolic 109–161; BP diastolic 71–124
[2024-03-06 05:56] LABS: BASOPHILS ABSOLUTE AUTO 0.07 K/mm3 (0.00-0.23); BASOPHILS PERCENT AUTO 1 % (0-2); EOSINOPHILS ABSOLUTE AUTO 0.07 K/mm3 (0.00-0.68); EOSINOPHILS PERCENT AUTO 1 % (0-6); Hematocrit 36.6 % (33.0-51.0); Hemoglobin 12.5 g/dL (11.5-16.0); IMMATURE GRAN ABSOLUTE AUTO 0.07 K/mm3 (0.00-0.10); IMMATURE GRAN PERCENT AUTO 1 % (0-1); LYMPHOCYTES ABSOLUTE AUTO 1.49 K/mm3 (0.84-5.20); LYMPHOCYTES PERCENT AUTO 14 % (21-46); MONOCYTES PERCENT AUTO 12 % (4-13); Mean Corpuscular HGB 30.3 pg (26.0-34.0); Mean Corpuscular HGB Conc 34.2 g/dL (31.5-36.5); Mean Corpuscular Volume 89 fL (80-100); Mean Platelet Volume 9.1 fL (9.1-12.4); NEUTROPHILS ABSOLUTE AUTO 7.46 K/mm3 (1.96-9.15); NEUTROPHILS PERCENT AUTO 72 % (41-73); Platelet Count 432 K/mm3 (150-400); RDW Coefficient Variation 12.3 % (11.7-14.2); RDW Standard Deviation 39.8 fL (35.1-46.3); Red Blood Cell Count 4.13 M/mm3 (3.80-5.20); White Blood Cell Count 10.36 K/mm3 (4.00-11.30)
[2024-03-06] MEDS ORDERED: Levothyroxine Sodium 0.125 MG Tab PO SCH (06:00)
--- NOTE | 2024-03-06 06:18 | NUR ---
SHIFT SUMMARY PATIENT REMAINS ALERT AND ORIENTED X4, SP02 98% ON RA, DENIES SOB. HR SR 70s, SOME SHORT RUNS OF SVT, SAVED TO CHART. NITRO DRIP INFUSING FOR CHEST PAIN AND BLOOD PRESSURE. PATIENT DENIES CP THIS AM. TR BAND OFF RIGHT RADIAL SITE, TEGADERM IN PLACE, SOME BRUISING BUT OTHERWISE WNL. EKG DONE THIS AM. PATIENT USING BEDPAN. LEFT KNEE SURGICAL DRESSING REMAINS IN PLACE C/D/I, ICE ON AND OFF AND MEDICATED FOR KNEE PAIN PER EMAR. PATIENT ABLE TO REPOSITION SELF, ASSISTANCE PRN. CALL LIGHT IN REACH
[2024-03-06 06:31] LABS: Alanine Aminotransfer (ALT/SGP 53 U/L (12-78); Albumin, Blood 2.8 g/dL (3.4-5.0); Albumin/Globulin Ratio 0.7 (0.8-1.8); Alk Phos 67 U/L (50-136); Anion Gap 14 mmol/L (3-11); Aspartate Aminotrans (AST/SGOT 195 U/L (12-37); Bilirubin, Total 0.8 mg/dL (0.1-1.0); Blood Urea Nitrogen 11 mg/dL (8-24); Bun/Creatinine Ratio 17.9 (12.0-20.0); CHOL/HDL RATIO 2.4; CO2, Blood 22 mmol/L (21-32); Calcium, Blood 8.4 mg/dL (8.5-10.1); Chloride, Blood 106 mmol/L (98-108); Cholesterol 102 mg/dL (50-200); Creatinine, Blood 0.62 mg/dL (0.40-1.00); Globulin, Blood 4.2 g/dL (2.2-4.0); Glomerular Filtration Rate 99 (60-); Glucose, Blood 138 mg/dL (70-99); HDL Cholesterol 42 mg/dL (>39); LDL/HDL RATIO 0.9; Low Density Lipoprotein Chol 38 mg/dL (0-110); Potassium, Blood 3.8 mmol/L (3.5-5.5); Sodium, Blood 138 mmol/L (136-145); Triglycerides 109 mg/dL (30-160); Very Low Density Lipoprot Chol 21 mg/dL (6-32)
--- NOTE | 2024-03-06 07:00 | NUR ---
ASSUMED CARE OF PATIENT AT APPROXIMATELY 0700. REPORT RECEIVED FROM PRITESH ROWELL AND NORBERTO RN. PT AWAKE IN BED, INTERACTING WITH STAFF APPROPRIATELY DURING BEDSIDE REPORT. CONTINUOUS CARIDAC MONITORING IN PLACE SHOWING SR, BP STABLE AND NO REPORTED CP PER PATIENT ON 10 MCG NITRO INFUSION. ON RA WITH O2 SATURATIONS > 92%. R RADIAL ACCESS SITE BRUISED AND TENDER, BUT SOFT TO TOUCH. POSTOPERATIVE DRESSING TO L KNEE, MARGINS MARKED AT START OF SHIFT. NO ACUTE NEEDS IDENTIFIED AT THIS TIME. SEE SHIFT ASSESSMENT FOR FULL DETAILS.
[2024-03-06] MEDS ORDERED: Insulin Human Lispro 100 Units/ML 3ML Syringe SC SCH (08:55)
[2024-03-06] MEDS ORDERED: Enoxaparin 40 MG/0.4 ML SYR SC SCH (09:00)
[2024-03-06] MEDS ORDERED: Losartan Potassium 50 MG Tab PO SCH (09:00)
[2024-03-06] MEDS ORDERED: Aspirin 81 MG Chew PO SCH (09:00)
[2024-03-06] MEDS ORDERED: Atorvastatin 40 MG Tab PO SCH (09:00)
[2024-03-06] MEDS ORDERED: Metoprolol Succinate 25 MG TABCR PO SCH ×2 (09:00→16:00)
[2024-03-06] MEDS ORDERED: Insulin Regular 100 UNIT/ML 10ML Vial SC SCH (11:30)
[2024-03-06] MEDS ORDERED: Empagliflozin 25 MG TAB PO SCH (12:00)
--- NOTE | 2024-03-06 15:18 | NUR ---
LEFT MESSAGE WITH ORTHO CALL PLACED TO DR. AMANDA ([employer]) RE: PT DRESSING. 8 DAYS POSTOP AND DRESSING IS NEEDING TO BE CHANGED. [place] PERFORMED SURGERY BUT TREASURE IS [employer]. WILL AWAIT FURTHER INSTRUCTION.
--- NOTE | 2024-03-06 17:27 | NUR ---
SHIFT SUMMARY PT REMAINED ALERT AND ORIENTED X 4 T/O ENTIRETY OF SHIFT. ABLE TO FOLLOW COMMANDDS, MAKE PURPOSEFUL MOVEMENTS, AND MAKE NEEDS KNOWN. AFEBRILE. MEDICATED FOR PAIN IN L KNEE AND HIP PER EMAR WITH GOOD BENEFIT. AMBULATES WITH SBA AND WALKER TO BSC AND CHAIR. CONTINOUS CARDIAC MONITORING IN PLACE SHOWS SR WITH HR IN 80'S-90'S. BP STABLE AND MAP > 65. NITRO GTT OFF SINCE APPROXIMATELY 0945 THIS AM. ON RA WITH O2 SATURATIONS > 92%. ONE BM THIS SHIFT. DENIES N/V. TOLERATING PO INTAKE WELL. VOIDS AT BSC. DRESSING TO L KNEE CHANGED PER DR. FIGUEROA. FAMILY AND FRIENDS VISITED FREQUENTLY AND UPDATED ON CONDITION. WILL CONTINUE TO MONITOR AND REPORT TO ONCOMING RN.
--- NOTE | 2024-03-06 20:00 | NUR ---
[place] OF CARE PT LYING IN BED, AWAKE/ALERT AND ORIENTED X 4. NEUROVASCULARLY INTACT INCLUDING RIGHT HAND, SITE OF RADIAL ACCESS X 3 (NO SIGNS OF HEMATOMA, SOME ECCHYMOSIS) AND LEFT LEG, SITE OF RECENT TOTAL LKA. PAIN IN L KNEE/L HIP/AND L NECK/SHOULDER, TREATED WITH HEAT AND PRN PAIN MEDS. VS STABLE. SALINE LOCKED. PT HAS CALL LIGHT.
[2024-03-07] VITALS (8 sets, daily range): BP systolic 97–153; BP diastolic 77–112
--- NOTE | 2024-03-07 07:31 | NUR ---
PT LYING IN BED ALERT AND ORIENTED, VS STABLE, PAIN IN LEFT KNEE AND HIP- HYDROCODONE, ICE, HEAT, REPOSITION HELPS SOME BUT NEVER TAKES THE PAIN LOWER THAN A 3-4. NEUROVASCULARLY INTACT, INCLUDING LEFT LE AND RIGHT HAND. R RADIAL ACCESS SITE STILL BRUISED AND TENDER BUT NO SIGNS OF HEMATOMA. RA SAT 99%. SALINE LOCKED. NO CHEST PAIN. PT HAS CALL LIGHT. REPORT GIVEN TO ONCOMING NURSE.
[2024-03-07] MEDS ORDERED: Spironolactone 12.5 MG TAB PO SCH (09:00)
[2024-03-07] MEDS ORDERED: METO25ER PO ×2 (14:16)
[2024-03-07] MEDS ORDERED: HYDR1TAB94 PO ×2 (14:20)
[2024-03-07] MEDS ORDERED: SPIR25 PO ×2 (14:22)
[2024-03-07] MEDS ORDERED: TICA90TA PO ×2 (14:23)
--- NOTE | 2024-03-07 14:44 | NUR ---
Pt. is awake in bed when she welcomes my visit. Facilited a life review and listened with empathy and interest. Pt. verbalized that she wasn't neccesarily a woman of art. Considered matters of her family and sought to normalize the Pts. experience as she anticipates needed PT or a rehab facility. Pt. displays evidence of trust and engagement. Pt. verbalized gratitude for the spiritual care visit and welcomed this manager lsw to return.
--- NOTE | 2024-03-07 17:51 | NUR ---
SUMMARY PT A/O X4. OOB TO CHAIR AND AMBULATES IN WOOD WITH FWW AND STANDBY ASSIST. L KNEE HAS C/D/I SURGICAL DRESSING OVER SUTURES FROM SURGERY. TOLERATING MEALS WELL. NO ACUTE CHANGES THIS SHIFT.
[2024-03-08 00:16] VITALS: BP 107/84
--- NOTE | 2024-03-08 02:26 | NUR ---
PT HAD NO SIGNIFICANT CHANGE IN CONDITION. SHE REMAINED A&OX4, COOPERATIVE, SLIGHTLY ANXIOUS ABOUT CURRENT SITUATION AND DISCHARGE PLANNING. NO SOB, ON ROOM AIR, SPO2 >95%. SINUS RHYTHM ON DIETICIAN, RATE IN 80S, NORMOTENSIVE. COMPLAINTS OF KNEE PAIN MANAGED WITH MEDICATION AND ICE. I GAVE REPORT TO SORIN MARTIN. PATIENT WAS TAKEN TO PCU 5 APPROXIMATELY 0223.
[2024-03-08 04:07] VITALS: BP 123/83
--- NOTE | 2024-03-08 05:26 | NUR ---
SHIFT SUMMARY PT TRANSFERRED FROM ICU THIS AM. ICE TO LEFT KNEE. PAIN TREATED PER EMAR ORDERS. OOB WITH FWW, SBA. NO ACUTE EVENTS SINCE ARRIVAL.
[2024-03-08 07:41] VITALS: BP 118/79
[2024-03-08 15:30] VITALS: BP 112/70
--- NOTE | 2024-03-08 18:37 | NUR ---
SHIFT SUMMERY: NO ACUTE CHNAGES OR SIGNIFICANT EVENTS HAPPEND DURING THIS SHIFT. PT WAS DISCHARGED TO [facility] VIA EMS AT 1712. THIS RN WENT OVER DISCHAEGE INSTRUCTIONS WITH PT. ALL QUESTIONS AND CONCERNS WERE ADDRESSED. PT DENIES ANY FURTHER QUESTIONS OR CONCERNS. REPORT WAS CALLED TO RAMON. BELONGINGS WERE COLLECTED AND SENT WITH PT. POWERGLIDE REMOVED FROM MARYURI. CATHETER INTACT.
== END 2024-03-08 17:14 | DRG 322 ==
LOC: ER 10:20 → ICUE 10:57 → PCU 03-08 02:37
PROVIDERS: Family Medicine Adult Medicine; Student in an Organized Health Care Education/Training Program; ADMIT Hospitalist
PROC: 027034Z Dilation of Coronary Artery, One Artery with Drug-eluting Intraluminal Device, Percutaneous Approach (ICD-10-PCS; principal; 2024-03-05)
PROC: B241ZZ3 Ultrasonography of Multiple Coronary Arteries, Intravascular (ICD-10-PCS; 2024-03-05)
PROC: B2111ZZ Fluoroscopy of Multiple Coronary Arteries using Low Osmolar Contrast (ICD-10-PCS; 2024-03-05)
PROC: 4A023N7 Measurement of Cardiac Sampling and Pressure, Left Heart, Percutaneous Approach (ICD-10-PCS; 2024-03-05)
DX: I21.09 ST elevation (STEMI) myocardial infarction involving other coronary artery of anterior wall (principal); I50.22 Chronic systolic (congestive) heart failure; I11.0 Hypertensive heart disease with heart failure; E78.5 Hyperlipidemia, unspecified; M17.10 Unilateral primary osteoarthritis, unspecified knee; K21.9 Gastro-esophageal reflux disease without esophagitis; E03.9 Hypothyroidism, unspecified; J45.909 Unspecified asthma, uncomplicated; E66.9 Obesity, unspecified; I25.5 Ischemic cardiomyopathy; E11.40 Type 2 diabetes mellitus with diabetic neuropathy, unspecified; Z68.39 Body mass index [BMI] 39.0-39.9, adult; J44.9 Chronic obstructive pulmonary disease, unspecified; Z79.82 Long term (current) use of aspirin; Z79.890 Hormone replacement therapy; Z79.899 Other long term (current) drug therapy; Z96.652 Presence of left artificial knee joint; Z87.81 Personal history of (healed) traumatic fracture; Z79.02 Long term (current) use of antithrombotics/antiplatelets; Z87.891 Personal history of nicotine dependence
CPT/HCPCS: 36415; 76937; 80048; 80053; 80061; 82947; 84484; 85025; 85347; 85610; 85730; 92973; 92978; 93005; 93010; 93308; 93321; 93458; 94762; 96374; 96375; 97110; 97116; 97162; 97165; 97530; 97535; 99152; 99153; 99285-25; A9270; C1725; C1753; C1769; C1874; C1887; C1894; C8929; C9606; J0461; J1644; J1650; J1815; J2250; J2270; J3010; J3246; J7030; J7050; Q9967